=== PATIENT | female | born 1945 | race Caucasian/White ===

== ENCOUNTER → 2016-08-29 | Outpatient (CLI) | payer MEDICARE, BC ==
[~2016-08-29] MED LIST: ACETAMINOPHEN PO; ALPRAZOLAM PO; ANTIVERT PO; FLEXERIL PO; KEFLEX PO; LIPITOR PO; LISINOPRIL PO; MEDROL PO; PERCOCET7.5 PO; PHENERGAN PO; VICODIN 5/500 T1 TAB PO; ZOCOR PO
--- NOTE | ~2016-08-29 | MY29 ---
[facility] A Service [facility] RADIOLOGY TEXT RESULTS PATIENT: HERMES MIRANDA LOCATION: [facility] : 45 UNIT #: [id number] AGE: [address]: Dayana Alfonso MD SEX: F ORDER DR: [id number] [facility] [address] [place], [place] [address] [id number] O MR#: [id number] Acc #: [id number] NAME: HERMES MIRANDA : 1945 SEX: F STUDY DATE/TIME: 08/29/2016 10:31 UNIT: [facility] ROOM: STUDY DESCRIPTION: MY RIO SCREENING W/ CAD BILAT Attending Physician: Dayana Alfonso M.D. Ordering Physician: Dayana Alfonso M.D. Primary Care Physician: Dayana Alfonso M.D. MEDICAL IMAGING REPORT This report is preliminary unless electronic signature is present EXAM Digital screening mammogram, 08/29/2016 HISTORY 71-year-old woman, interim weight loss. No risk elevation. Annual screening. COMPARISON Mammograms date to 06/07/2005 with most recent 02/02/2015. FINDINGS Digital imaging of each breast was completed utilizing a two-view examination of each breast in craniocaudal and mediolateral-oblique projections. Review and interpretation of digital mammograms include a second review in conjunction with FDA-approved CAD device. There is a normal parenchymal presentation bilaterally consistent with the patient's age. There are no breast masses imaged and no parenchymal asymmetry is visualized. There are no suspicious microcalcifications and I see no focal architectural disturbance. IMPRESSION Negative screening digital mammogram. One-year followup recommended. Patients over the age of 40 are entered into a reminder system with target due date for the next mammogram. A result letter will also be sent to the patient. BIRADS: 1 Negative ADDENDUM Breast parenchyma is fatty replaced. Dictated by... [facility] A Service [facility] RADIOLOGY TEXT RESULTS PATIENT: HERMES MIRANDA LOCATION: [facility] : 45 UNIT #: [id number] AGE: [address]: Dayana Alfonso MD SEX: F ORDER DR: Iglesia Cartagena M.D. THIS IS AN ELECTRONICALLY VERIFIED REPORT Iglesia Cartagena M.D. at 08/29/2016 1:03 PM Amadou TD: 08/29/2016 12:22 JOB #: [id number] MEDICAL IMAGING REPORT Page 1 of 1 COPY
== END | disposition home or self-care (01) ==
LOC: CWCC 10:07
DX: Z12.31 Encounter for screening mammogram for malignant neoplasm of breast (principal); R92.8 Other abnormal and inconclusive findings on diagnostic imaging of breast
CPT/HCPCS: G0202